=== PATIENT | female | born 1995 | race Caucasian/White ===

== ENCOUNTER 2017-04-18 07:47 | Emergency (ER) | payer SELFPAY ==
[2017-04-18] MEDS ORDERED: TORADOL IM ONE (08:29)
--- NOTE | 2017-04-18 08:29 | Emergency Department Report ---
ED ENT HPI - General Chief complaint: Dental/Oral Stated complaint: MOUTH, EAR, JAW PAIN AND HEADACHE Time Seen by Provider: 04/18/17 07:56 Source: patient Mode of arrival: Ambulatory Limitations: No Limitations - History of Present Illness Initial comments: This is a 21-year-old female nontoxic, well nourished in appearance, no acute signs of distress presents to the ED complaining of nontoxic, well nourished in appearance, no acute signs of distress presents to the ED complaining of left earache and left toothache x2 weeks. Patient also stated due to the pain and left earache and toothache she develops intermittent headaches but is relief with taking [id number] ibuprofen. Patient denies any fever, chills, nausea, vomiting, mastoid tenderness, chest pain, shortness of breath, thunderclap headache, blurry vision, abdominal pain, pelvic pain, ear discharge. Patient denies any trauma to the region. Denies any allergies or past medical history. MD complaint: tooth pain, ear pain -: Gradual, week(s) (2) Location: L ear Severity: mild Severity scale (0 -10): 8 Quality: aching Consistency: constant Improves with: none Worsens with: none Associated Symptoms: denies: fever, cough, gum swelling, toothache, pain with swallowing, sore throat, tinnitus, hearing loss, discharge from ear, rhinorrhea - Related Data Previous Rx's Medication Instructions Recorded Last Taken Type Amoxicillin 500 mg PO BID #20 capsule 04/18/17 Unknown Rx Ibuprofen 600 mg PO Q6H #30 tablet 04/18/17 Unknown Rx Allergies Allergy/AdvReac Type Severity Reaction Status Date / Time No Known Allergies Allergy Verified 04/18/17 07:54 ED Dental HPI - General Chief complaint: Dental/Oral Stated complaint: MOUTH, EAR, JAW PAIN AND HEADACHE Time Seen by Provider: 04/18/17 07:56 Source: patient Mode of arrival: Ambulatory Limitations: No Limitations - Related Data Previous Rx's Medication Instructions Recorded Last Taken Type Amoxicillin 500 mg PO BID #20 capsule 04/18/17 Unknown Rx Ibuprofen 600 mg PO Q6H #30 tablet 04/18/17 Unknown Rx Allergies Allergy/AdvReac Type Severity Reaction Status Date / Time No Known Allergies Allergy Verified 04/18/17 07:54 ED Review of Systems ROS: Stated complaint: MOUTH, EAR, JAW PAIN AND HEADACHE Other details as noted in HPI Constitutional: denies: chills, fever Eyes: denies: eye pain, eye discharge, vision change ENT: ear pain, dental pain. denies: throat pain Respiratory: denies: cough, shortness of breath, wheezing Cardiovascular: denies: chest pain, palpitations Endocrine: no symptoms reported Gastrointestinal: denies: abdominal pain, nausea, diarrhea Genitourinary: denies: urgency, dysuria, discharge Musculoskeletal: denies: back pain, joint swelling, arthralgia Skin: denies: rash, lesions Neurological: denies: headache, weakness, paresthesias Psychiatric: denies: anxiety, depression Hematological/Lymphatic: denies: easy bleeding, easy bruising ED Past Medical Hx - Past Medical History Previous Medical History?: No - Surgical History Past Surgical History?: No - Social History Smoking Status: Never Smoker Substance Use Type: None - Medications Home Medications: Home Medications Medication Instructions Recorded Confirmed Last Taken Type Amoxicillin 500 mg PO BID #20 capsule 04/18/17 Unknown Rx Ibuprofen 600 mg PO Q6H #30 tablet 04/18/17 Unknown Rx ED Physical Exam - General Limitations: No Limitations General appearance: alert, in no apparent distress - Head Head exam: Present: atraumatic, normocephalic, normal inspection - Eye Eye exam: Present: normal appearance, PERRL, EOMI. Absent: scleral icterus, conjunctival injection, nystagmus, periorbital swelling, periorbital tenderness Pupils: Present: normal accommodation - ENT ENT exam: Present: normal exam, normal orophraynx, mucous membranes moist, normal external ear exam - Expanded ENT Exam Expanded Ear exam: Present: normal external inspection TM/Canal exam: Erythema: Left TM, Bulging: Left TM Mouth exam: Present: normal external inspection, tongue normal, other (No abscess or swelling noted.). Absent: drooling, trismus, muffled voice, tongue elevation, laceration Teeth exam: Present: normal inspection, other (No abscess or swelling noted.) Throat exam: Positive: normal inspection. Negative: tonsillar erythema, tonsillomegaly, tonsillar exudate, R peritonsillar mass, L peritonsillar mass - Neck Neck exam: Present: normal inspection, full ROM. Absent: tenderness, meningismus, lymphadenopathy, thyromegaly - Respiratory Respiratory exam: Present: normal lung sounds bilaterally. Absent: respiratory distress, wheezes, rales, rhonchi, stridor, chest wall tenderness, accessory muscle use, decreased breath sounds, prolonged expiratory - Cardiovascular Cardiovascular Exam: Present: regular rate, normal rhythm, normal heart sounds. Absent: bradycardia, tachycardia, irregular rhythm, systolic murmur, diastolic murmur, rubs, gallop - GI/Abdominal GI/Abdominal exam: Present: soft, normal bowel sounds. Absent: distended, tenderness, guarding, rebound, rigid, diminished bowel sounds - Rectal Rectal exam: Present: deferred - Extremities Exam Extremities exam: Present: normal inspection, full ROM, normal capillary refill. Absent: tenderness, pedal edema, joint swelling, calf tenderness - Back Exam Back exam: Present: normal inspection, full ROM. Absent: tenderness, CVA tenderness (R), CVA tenderness (L), muscle spasm, paraspinal tenderness, vertebral tenderness, rash noted - Neurological Exam Neurological exam: Present: alert, oriented X3, CN II-XII intact, normal gait, reflexes normal - Psychiatric Psychiatric exam: Present: normal affect, normal mood - Skin Skin exam: Present: warm, dry, intact, normal color. Absent: rash ED Course Vital Signs 04/18/17 07:51 Temperature 97.3 F L Pulse Rate 61 Respiratory 16 Rate Blood Pressure 121/70 O2 Sat by Pulse 97 Oximetry - Reevaluation(s) Reevaluation #1: 04/18/17 08:29 Patient is speaking in full sentences with no signs of distress noted. ED Medical Decision Making - Medical Decision Making 21-year-old female that presents with left otitis media that radiates to left jaw region and head. Patient received Toradol 60 mg IM in the ED the patient stated symptoms have significantly improved and are subsiding. Patient received amoxicillin at discharge. Patient was instructed to follow-up with a primary care doctor in 3-5 days or if symptoms worsen and continue return to emergency room as soon as possible possible. Patient is hemodynamically stable with stable vital signs. Patient states he is feeling better. At time time of discharge, the patient does not seem toxic or ill in appearance. No acute signs of distress noted. Patient agrees to discharge treatment plan of care. No further questions noted by the patient. Critical care attestation.: If time is entered above; I have spent that time in minutes in the direct care of this critically ill patient, excluding procedure time. ED Disposition Clinical Impression: Otitis media Qualifiers: Otitis media type: unspecified Laterality: left Qualified Code(s): H66.92 - Otitis media, unspecified, left ear Disposition: TO HOME OR SELFCARE Is pt being admited?: No Does the pt Need Aspirin: No Condition: Stable Instructions: Otitis Media (ED), Amoxicillin (By mouth), Ibuprofen (By mouth) Additional Instructions: Follow-up with a primary care doctor in 3-5 days or if symptoms worsen and continue return to emergency room as soon as possible possible. Prescriptions: Amoxicillin 500 mg PO BID #20 capsule Ibuprofen 600 mg PO Q6H #30 tablet Referrals: PRIMARY CAREMD [Primary Care Provider] - 3-5 Days HARSH DELCID MD [Staff Physician] - 3-5 Days [facility] [Outside] - 3-5 Days [facility] [Outside] - 3-5 Days Forms: Work/School Release Form(ED)
[2017-04-18 12:06] VITALS: BP 121/70
== END 2017-04-18 08:52 | disposition home or self-care (01) ==
LOC: ED 07:47
DX: H66.92 Otitis media, unspecified, left ear (principal)
CPT/HCPCS: 96372; 99282; J1885